=== PATIENT | female | born 1960 ===

== ENCOUNTER 2017-03-17 20:39 | Observation (INO) | payer MEDICAID, OTHER ==
--- NOTE | 2017-03-17 21:41 | ED PDOC ---
HPI: Trauma/Fall - HPI Time Seen by Provider: 03/17/17 21:23 Chief Complaint (Nursing): Trauma Chief Complaint (Provider): Trauma History Per: Patient History/Exam Limitations: no limitations Onset/Duration Of Symptoms: Days (x2) Additional Complaint(s): Nidhi Caldwell, 56 year old female presents to the ED on 03/17/17 after falling down the stairs on Wednesday morning at 4:27 AM. The patient states that she woke up as she was falling down the stairs and does not remember getting out of bed. She also reports that she does not sleep walk. The patient injured her neck and hit her head. She is also complaining of right sided chest pain, left sided hip pain, left sided knee pain, and left ankle pain. The patient did not lose consciousness after she fell down the stairs. Against Medical Advice - AMA Patient Left Against Medical Advice: The patient declines admission to the hospital and wishes to leave the Emergency Department. This action is against my medical advice. This decision was made with informed refusal. The patient was told that admission to the hospital is necessary. Explanation of the reasons why were discussed. The risks of leaving were explained to the patient and include, but are not limited to, worsening of known or currently unknown conditions, permanent disability and from undiagnosed or untreated conditions. The patient has the capacity to make this informed decision and understands my explanation of the current medical problem and risks of leaving. The patient voluntarily accepts these risks and signed an AMA form documenting our conversation. The patient was given the opportunity to ask questions and reconsider. The patient was encouraged to return to the Emergency Department at any time for further care. 03/17/17 23:56 Pt. states she has scheduled appointment with a new manager solar tomorrow and she does not want to miss it. Pt. encouraged to stay in hospital for further monitoring but states she does not want to stay and she will f/u with her PMD instead. Past Medical History Reviewed: Historical Data, Nursing Documentation, Vital Signs Vital Signs: Last Vital Signs Temp 98.6 F 03/17/17 21:01 Pulse 70 03/17/17 21:01 Resp 20 03/17/17 21:01 BP 140/53 L 03/17/17 21:01 Pulse Ox 100 03/17/17 21:01 - Medical History PMH: Arthritis (psoriatic), Hyperthyroidism Denies: Chronic Kidney Disease - Surgical History Surgical History: Cholecystectomy - Family History Family History: States: Unknown Family Hx - Home Medications Home Medications: Ambulatory Orders Medication Instructions Recorded Dicyclomine [Bentyl] 20 mg PO Q12 PRN #20 tab 01/31/16 Ondansetron ODT [Zofran ODT] 4 mg PO Q6H PRN #16 odt 01/31/16 Tramadol HCl [Ultram] 50 mg PO BID PRN #10 tablet 03/17/17 - Allergies Allergies/Adverse Reactions: Allergies Allergy/AdvReac Type Severity Reaction Status Date / Time No Known Allergies Allergy Verified 01/30/16 19:24 Review of Systems Cardiovascular: Positive for: Chest Pain (right sided chest pain) Musculoskeletal: Positive for: Neck Pain (injured neck), Leg Pain (left sided hip pain, knee pain, and ankle pain), Other (injured head) Neurological: Negative for: Other (no loss of consciousness ) Physical Exam - Reviewed Nursing Documentation Reviewed: Yes Vital Signs Reviewed: Yes - Physical Exam Appears: Positive for: Non-toxic, No Acute Distress Head Exam: Positive for: ATRAUMATIC, NORMOCEPHALIC Skin: Positive for: Normal Color, Warm, Dry Eye Exam: Positive for: Normal appearance ENT: Positive for: Normal ENT Inspection Neck: Positive for: Normal Cardiovascular/Chest: Positive for: Regular Rate, Rhythm. Negative for: Chest Non Tender (right sided axillary and chest wall tenderness and ecchymosis ) Respiratory: Positive for: Normal Breath Sounds. Negative for: Respiratory Distress Gastrointestinal/Abdominal: Positive for: Normal Exam, Soft. Negative for: Tenderness, Mass, Distended, Guarding, Rebound Back: Positive for: Normal Inspection, Other (minimal paracervical muscle tenderness) Extremity: Positive for: Tenderness (left lateral hip tenderness; left anterior knee tenderness; left lateral malleolus tenderness of ankle; tenderness to left thumb) Neurologic/Psych: Positive for: Alert, Oriented (x3) - Laboratory Results Result Diagrams: 03/17/17 22:05 03/17/17 22:05 - ECG O2 Sat by Pulse Oximetry: 100 (RA) Pulse Ox Interpretation: Normal Medical Decision Making Medical Decision Makin:23 Initial Impression: Trauma - Multisystem Initial Plan: * Type and Screen Stat * CT Cervical Spine W/O Contrast Stat * CT Chest W/O Contrast Stat * CT Head W/O Contrast Stat * ED EKG * COMP Metabolic Panel Stat * Troponin I Stat * CBC (with Differential) Stat * Partial Thromboplastin Time [COAG] Stat * PT/INR [Prothrombin Time] [COAG] Stat * Chest Portable [RAD] Stat * Knee 3 Views LT [RAD] Stat * IV Insertion (Saline Lock) Once * Ankle Left 3 Views Routine [RAD] Stat * Hip 1 View W/ Pelvis LT [RAD] Stat * Urinalysis Stat * Morphine 2 mg IVP STAT * Zofran Inj 4 mg IVP STAT * Admit to Hospital Routine Scribe Attestation: Documented by Lauryn Franklin, acting as a scribe for Dallin Su PA-C. Provider Scribe Attestation: All medical record entries made by the Scribe were at my direction and personally dictated by me. I have reviewed the chart and agree that the record accurately reflects my personal performance of the history, physical exam, medical decision making, and the department course for this patient. I have also personally directed, reviewed, and agree with the discharge instructions and disposition. Disposition - Clinical Impression Clinical Impression: Syncope, Head injury, Chest wall contusion - Patient ED Disposition Is Patient to be Admitted: Transfer of Care (Signed out to Leatha DEL ROSARIO pending CT abd/pelvis w/o contrast ordered.) - Disposition Disposition: Transfer of Care Disposition Time: 23:56 Condition: STABLE ED OBSERVATION Discharge: Yes Date of observation admission: 03/17/17 Time of observation admission: 21:38 - Observation admission statement Patient is being placed in observation because:: s/p fall - Progress Note Progress Note: 03/17/17 22:43 EKG SR at [address]-T wave changes. 03/17/17 23:54 CXR: NAD L ankle, L knee, L hip, L hand xrays: no fx CT head w/o contrast: negative CT cervical spine w/o contrast: no fx CT chest w/o contrast: no ptx or fx; Right renal peripelvic cyst versus minimal fullness to the collecting system 03/18/17 00:06 UA showed UTI and due to CT chest findings CT abd/pelvis w/o contrast ordered. Pt. offered admission again but refused and states she just wants to get CT abd/ pelvis done to check her kidneys.
[2017-03-17 22:15] LABS: BASO % 0.5 % (0.0-2.0); EOS # 0.2 K/uL (0.0-0.7); EOS % 2.9 % (0.0-4.0); HEMATOCRIT 44.4 % (34.0-47.0); LYMPH % 28.7 % (20.0-40.0); MEAN CELL VOLUME 87.3 fl (81.0-99.0); MEAN CORPUSCULAR HEMOGLOBIN 29.2 pg (27.0-31.0); MEAN CORPUSCULAR HGB CONC 33.5 g/dL (33.0-37.0); MEAN PLATELET VOLUME 7.7 fl (7.2-11.7); MONO # 0.4 K/uL (0.0-0.8); MONO % 5.9 % (0.0-10.0); NEUT # 4.3 K/uL (1.8-7.0); NRBC % 0.1 % (0.0-0.0); RED CELL DISTRIBUTION WIDTH 13.8 % (11.5-14.5)
[2017-03-17 22:39] LABS: ALB/GLOB RATIO 1.5 (1.0-2.1); ALCOHOL SERUM < 10 mg/dl (0-10); ALKALINE PHOSPHATASE 110 U/L (38-126); ALT/SGPT 49 U/L (9-52); AST/SGOT 27 U/L (14-36); BILIRUBIN,TOTAL 0.3 mg/dl (0.2-1.3); BLOOD UREA NITROGEN 19 mg/dl (7-17); CALCIUM 9.1 mg/dL (8.4-10.2); CARBON DIOXIDE 31 mmol/L (22-30); CHLORIDE 99 mmol/L (98-107); GFR AFRICAN-AMERICAN > 60; GLUCOSE,RANDOM 158 mg/dL (65-105); POTASSIUM 3.8 MMOL/L (3.6-5.0); SODIUM 140 mmol/l (132-148); TOTAL PROTEIN 7.2 G/DL (6.3-8.2)
[2017-03-17 23:11] LABS: PARTIAL THROMBOPLASTIN TIME 26.8 SECONDS (23.3-32.5)
[2017-03-17 23:55] LABS: RBC URINE 1 /hpf (0-3); URINE BACTERIA RARE (<OCC); URINE BILIRUBIN NEGATIVE (NEGATIVE); URINE BLOOD SMALL (NEGATIVE); URINE COLOR STRAW (YELLOW); URINE GLUCOSE (UA) 50 mg/dL (Normal); URINE KETONE NEGATIVE (NEGATIVE); URINE LEUKOCYTE ESTERASE LARGE Leu/uL (Negative); URINE PROTEIN NEGATIVE (NEGATIVE); URINE UROBILINOGEN 0.2-1.0 mg/dL (0.2-1.0); WBC URINE 14 /hpf (0-5)
--- NOTE | 2017-03-18 01:40 | ED PDOC ---
- Laboratory Results Result Diagrams: 03/17/17 22:05 03/17/17 22:05 - ECG O2 Sat by Pulse Oximetry: 100 (RA) - Progress ED Course And Treament: Case endorsed to literary writer from Georges DEL ROSARIO pending CT abd/pelvis EXAM: CT Abdomen and Pelvis Without Intravenous Contrast CLINICAL HISTORY: 56 years old, female; Pain; Abdominal pain; Flank; Right; Prior surgery; Surgery date: 6+ months; Surgery type: Gall bladder removed; Additional info: Uti, r sided perinephric swelling TECHNIQUE: Axial computed tomography images of the abdomen and pelvis without intravenous contrast. This CT exam was performed using one or more of the following dose reduction techniques: automated exposure control, adjustment of the mA and/or kV according to patient size, and/or use of iterative reconstruction technique. COMPARISON: No relevant prior studies available. FINDINGS: Lower thorax: No acute findings. ABDOMEN: Liver: Fatty infiltration of the liver. Gallbladder and bile ducts: Cholecystectomy. No ductal dilation. Pancreas: Unremarkable. No ductal dilation. Spleen: Unremarkable. No splenomegaly. Adrenals: Unremarkable. No mass. Kidneys and ureters: No stones within either kidney or ureter and no hydronephrosis. Stomach and bowel: Moderate fecal retention in the right and transverse colon. Diverticulosis in the colon without evidence of diverticulitis. Appendix: Normal appendix. PELVIS: Bladder: Unremarkable. No stones. Reproductive: Unremarkable as visualized. ABDOMEN and PELVIS: Intraperitoneal space: Unremarkable. No free air. No significant fluid collection. Bones/joints: No acute fracture. No dislocation. Soft tissues: Unremarkable. Vasculature: Unremarkable. No abdominal aortic aneurysm. Lymph nodes: Unremarkable. No enlarged lymph nodes. IMPRESSION: 1. No stones within either kidney or ureter and no hydronephrosis. 2. Moderate fecal retention in the right and transverse colon. Patient made aware of results; still has not changed her mind abotu signing against medical advice. Rx Cipro provided (dose given in ED) Follow up PMD 2-3 days. Return to ED for worsening/concerning symptoms. Disposition - Clinical Impression Clinical Impression: Syncope, Head injury, Chest wall contusion, UTI (urinary tract infection) - POA Present On Arrival: None - Disposition Disposition: Routine/Home Disposition Time: 01:42 Condition: STABLE
[2017-03-18 02:26] VITALS: BP 133/81; PULSE 81; RESP 17; TEMP 98.1
--- NOTE | 2017-03-18 07:51 | CT ---
PROCEDURE: CT HEAD WITHOUT CONTRAST. HISTORY: trauma COMPARISON: None available. TECHNIQUE: Axial computed tomography images were obtained through the head/brain without intravenous contrast. Radiation dose: Total exam DLP = 832.41 mGy-cm. This CT exam was performed using one or more of the following dose reduction techniques: Automated exposure control, adjustment of the mA and/or kV according to patient size, and/or use of iterative reconstruction technique. FINDINGS: HEMORRHAGE: No intracranial hemorrhage. BRAIN: No mass effect or edema. No atrophy or chronic microvascular ischemic changes. VENTRICLES: Unremarkable. No hydrocephalus. CALVARIUM: Unremarkable. PARANASAL SINUSES: Unremarkable as visualized. No significant inflammatory changes. MASTOID AIR CELLS: Unremarkable as visualized. No inflammatory changes. OTHER FINDINGS: None. IMPRESSION: No evidence of acute intracranial hemorrhage intracranial collection mass effect or midline shift. Preliminary report was submitted by [facility].
--- NOTE | 2017-03-18 07:55 | CT ---
PROCEDURE: CT Cervical Spine without contrast HISTORY: <trauma> COMPARISON: None available. TECHNIQUE: Axial computed tomography images were obtained of the cervical spine without the use of intravenous contrast. Coronal and sagittal reformatted images were created and reviewed. Radiation dose: Total exam DLP = 528.37 mGy-cm. This CT exam was performed using one or more of the following dose reduction techniques: Automated exposure control, adjustment of the mA and/or kV according to patient size, and/or use of iterative reconstruction technique. FINDINGS: VERTEBRAE: No fracture. Normal alignment. No destructive bony lesion. DISCS/SPINAL CANAL/NEURAL FORAMINA: Moderate degenerative disc changes associated with multilevel small osteophyte disc bulging complex more prominent at C4-C5. . Discs heights are grossly preserved. PARASPINAL SOFT TISSUES: Unremarkable. OTHER FINDINGS: None. IMPRESSION: No evidence of acute displaced fracture or subluxation at the cervical spine. Moderate degenerative changes and multilevel small osteophyte disc bulging complex. Preliminary report was submitted by [facility]
--- NOTE | 2017-03-18 08:01 | CT ---
PROCEDURE: CT Chest without contrast HISTORY: trauma COMPARISON: None. TECHNIQUE: Contiguous axial images were obtained through the chest without intravenous contrast enhancement. Sagittal and coronal reconstructions were performed. Radiation dose (DLP): 630.83 mGy-cm. This CT exam was performed using one or more of the following dose reduction techniques: Automated exposure control, adjustment of the mA and/or kV according to patient size, and/or use of iterative reconstruction technique. FINDINGS: LUNGS: Clear lungs. Visualized airway clear. MEDIASTINUM: Unremarkable thoracic aorta. No aneurysm. Normal sized heart. Main pulmonary artery unremarkable. No vascular congestion. No lymphadenopathy. PLEURA: No pleural fluid. No pneumothorax. BONES: No fracture. No destructive lesion. UPPER ABDOMEN: Small right renal parapelvic cyst versus fullness in the collecting system. OTHER FINDINGS: None. IMPRESSION: No evidence of acute pathology in the chest. Preliminary report was submitted by [facility].
--- NOTE | 2017-03-18 08:52 | CT ---
PROCEDURE: CT Abdomen and Pelvis without intravenous contrast HISTORY: UTI, R sided perinephric swelling COMPARISON: None. TECHNIQUE: Axial and reformatted coronal and sagittal CT images of the abdomen and pelvis were obtained without IV or oral contrast administration.. Contrast Dose: 0 Radiation dose: Total exam DLP = 825.18 mGy-cm. This CT exam was performed using one or more of the following dose reduction techniques: Automated exposure control, adjustment of the mA and/or kV according to patient size, and/or use of iterative reconstruction technique. FINDINGS: LOWER THORAX: Unremarkable. LIVER: No evidence of acute pathology. Mild cardiomegaly GALLBLADDER AND BILE DUCTS: It megaly is seen. At least post cholecystectomy. PANCREAS: Unremarkable. No gross lesion or ductal dilatation. SPLEEN: Unremarkable. ADRENALS: Unremarkable. No mass. KIDNEYS AND URETERS: Unremarkable. No hydronephrosis. No solid mass. VASCULATURE: Unremarkable. No aortic aneurysm. BOWEL: Unremarkable. No obstruction. No gross mural thickening. Mild constipation is noted. APPENDIX: Unremarkable. Normal appendix. PERITONEUM: Unremarkable. No free fluid. No free air. LYMPH NODES: Unremarkable. No enlarged lymph nodes. BLADDER: Unremarkable. REPRODUCTIVE: Unremarkable. BONES: No acute fracture. OTHER FINDINGS: None. IMPRESSION: No evidence of acute pathology in the abdomen and pelvis. Mild constipation. No evidence of nephrolithiasis or hydronephrosis. Colonic diverticulosis without evidence of diverticulitis. Preliminary report was submitted by [facility].
--- NOTE | 2017-03-18 10:07 | CARD ---
APPROVED REPORT EKG Measurement Heart [id number] <Conclusion> Normal sinus rhythm Minimal voltage criteria for LVH, may be normal variant Possible septal infarct, age undetermined Abnormal ECG
--- NOTE | 2017-03-18 12:37 | RAD ---
HISTORY: trauma COMPARISON: No prior. FINDINGS: LUNGS: No active pulmonary disease. PLEURA: No significant pleural effusion identified, no pneumothorax apparent. CARDIOVASCULAR: No radiographic findings to suggest acute or significant cardiovascular disease. OSSEOUS STRUCTURES: No significant abnormalities. VISUALIZED UPPER ABDOMEN: Normal. OTHER FINDINGS: None. IMPRESSION: No active disease.
--- NOTE | 2017-03-18 13:24 | RAD ---
PROCEDURE: Left Knee Radiographs. HISTORY: Pain. COMPARISON: None. FINDINGS: BONES: Normal. No fracture. JOINTS: Mild osteoarthritic changes JOINT EFFUSION: None. OTHER FINDINGS: None. IMPRESSION: No evidence of acute pathology. Mild osteoarthritic changes.
--- NOTE | 2017-03-18 13:25 | RAD ---
PROCEDURE: Left Ankle Radiographs. HISTORY: trauma COMPARISON: None FINDINGS: BONES: Normal. No fracture. JOINTS: Normal. No osteoarthritis. Ankle mortise maintained. Talar dome intact SOFT TISSUES: Normal. OTHER FINDINGS: None. IMPRESSION: No evidence of acute fracture or dislocation.
--- NOTE | 2017-03-18 13:35 | RAD ---
PROCEDURE: Left Hip X-ray Radiographs. HISTORY: trauma COMPARISON: None. FINDINGS: BONES: Normal. No fracture. JOINTS: Normal. SOFT TISSUES: Normal. OTHER FINDINGS: None. IMPRESSION: No evidence of acute fracture or dislocation.
--- NOTE | 2017-03-18 13:45 | RAD ---
PROCEDURE: Left Thumb radiographs. HISTORY: trauma COMPARISON: None. TECHNIQUE: AP radiograph of the left hand, as well as spot oblique and lateral images of thumb were obtained. FINDINGS: LEFT THUMB: Normal left thumb, without fracture or focal lesion. Remainder of the left hand (as seen on the AP view) grossly unremarkable. JOINTS: Arthritic changes. SOFT TISSUES: Normal. OTHER FINDINGS: None. IMPRESSION: No evidence of acute fracture or dislocation.
--- NOTE | 2017-03-19 11:47 | RAD ---
PROCEDURE: Left hip HISTORY: Posttraumatic pain COMPARISON: None TECHNIQUE: Standard protocol for this study/examination. FINDINGS: There are no osseous abnormalities to suggest fracture. The pelvic ring is intact. Preserved femoral-acetabular relationship. IMPRESSION: No acute findings related to/accounting for the clinical presentation.
[2017-03-23 03:01] VITALS: O2SAT 100
== END 2017-03-17 23:57 | disposition left against medical advice (07) ==
LOC: H.ER 20:39 → H.EROBSV 21:38
PROVIDERS: ADMIT Emergency Medicine; ATTEND Emergency Medicine
DX: R55 Syncope and collapse (principal); S20.211A Contusion of right front wall of thorax, initial encounter; S09.8XXA Other specified injuries of head, initial encounter; N39.0 Urinary tract infection, site not specified; E05.90 Thyrotoxicosis, unspecified without thyrotoxic crisis or storm; L40.50 Arthropathic psoriasis, unspecified; W10.8XXA Fall (on) (from) other stairs and steps, initial encounter; Y92.009 Unspecified place in unspecified non-institutional (private) residence as the place of occurrence of the external cause

== ENCOUNTER 2019-03-14 11:37 | Inpatient (IN) | payer MEDICAID, OTHER ==
[2019-03-14 12:09] VITALS: BMI 29.2
[2019-03-14] MEDS ORDERED: Sodium Chloride 0.9% 1,000 ML IV STA (13:12)
[2019-03-14 13:50] LABS: BASO % 0.4 % (0.0-2.0); EOS # 0.1 K/uL (0.0-0.7); EOS % 0.5 % (0.0-4.0); HEMOGLOBIN 15.3 g/dL (12.0-16.0); LYMPH # 1.2 K/uL (1.0-4.3); LYMPH % 11.1 % (20.0-40.0); MEAN CELL VOLUME 92.8 fl (81.0-99.0); MEAN CORPUSCULAR HEMOGLOBIN 32.2 pg (27.0-31.0); MEAN CORPUSCULAR HGB CONC 34.7 g/dL (33.0-37.0); MEAN PLATELET VOLUME 7.7 fl (7.2-11.7); MONO # 1.1 K/uL (0.0-0.8); NEUT # 8.8 K/uL (1.8-7.0); RBC 4.77 Mil/uL (3.80-5.20); RED CELL DISTRIBUTION WIDTH 13.6 % (11.5-14.5)
[2019-03-14 13:51] LABS: WHITE BLOOD COUNT 11.3 K/uL (4.8-10.8)
[2019-03-14 13:54] LABS: ALB/GLOB RATIO 1.3 (1.0-2.1); ALBUMIN 4.5 g/dL (3.5-5.0); BLOOD UREA NITROGEN 15 mg/dl (7-17); CALCIUM 9.8 mg/dL (8.4-10.2); GFR NON-AFRICAN AMERICAN > 60; LIPASE 106 U/L (23-300)
[2019-03-14 13:57] LABS: ALT/SGPT 44 U/L (9-52); AST/SGOT 27 U/L (14-36)
--- NOTE | 2019-03-14 14:39 | ED PDOC ---
HPI: Abdomen Time Seen by Provider: 03/14/19 12:47 Chief Complaint (Nursing): Abdominal Pain History Per: Patient Additional Complaint(s): Pt. states yesterday she developed LLQ sharp crampy lower abdominal pain which radiates into her pelvis. Further reports over the weekend she developed diarrhea which resolved yesterday and has been having normal BM's since. Denies fever, N/V, melena, hematochezia, BRBPR, dysuria, hematuria, back pain. Past Medical History Reviewed: Historical Data, Nursing Documentation, Vital Signs Vital Signs: Last Vital Signs Temp 98.6 F 03/14/19 12:09 Pulse 97 H 03/14/19 12:09 Resp 20 03/14/19 12:09 BP 148/78 03/14/19 12:09 Pulse Ox 98 03/14/19 12:09 Primary Care Provider: Non [facility] Provider, - Medical History PMH: Anxiety, Arthritis (psoriatic), Hyperthyroidism Denies: Chronic Kidney Disease - Surgical History Surgical History: Cholecystectomy - Family History Family History: States: No Known Family Hx - Home Medications Home Medications: Ambulatory Orders Medication Instructions Recorded Levothyroxine [Synthroid] 150 mcg PO DAILY 06/07/18 Home Med 1 unit PO PRN PRN 06/14/18 - Allergies Allergies/Adverse Reactions: Allergies Allergy/AdvReac Type Severity Reaction Status Date / Time latex AdvReac URTICARIA Verified 06/14/18 11:56 Review of Systems ROS Statement: Except As Marked, All Systems Reviewed And Found Negative Gastrointestinal: Positive for: Abdominal Pain Physical Exam - Physical Exam Appears: Positive for: Well, Non-toxic, No Acute Distress Skin: Positive for: Normal Color, Warm. Negative for: Rash Eye Exam: Positive for: Normal appearance Cardiovascular/Chest: Positive for: Regular Rate, Rhythm Respiratory: Positive for: Normal Breath Sounds. Negative for: Respiratory Distress Gastrointestinal/Abdominal: Positive for: Soft, Tenderness (mild LLQ tenderness). Negative for: Distended, Guarding, Rebound Back: Negative for: L CVA Tenderness, R CVA Tenderness Neurological/Psych: Positive for: Awake, Alert, Oriented (x3) - Laboratory Results Result Diagrams: 03/14/19 13:35 03/14/19 13:35 Lab Results: Total Bilirubin 0.8 mg/dl (0.2-1.3) 03/14/19 13:35 AST 27 U/L (14-36) 03/14/19 13:35 ALT 44 U/L (9-52) 03/14/19 13:35 Alkaline Phosphatase 80 U/L (38-126) 03/14/19 13:35 Total Protein 8.0 G/DL (6.3-8.2) 03/14/19 13:35 Albumin 4.5 g/dL (3.5-5.0) 03/14/19 13:35 Globulin 3.5 gm/dL (2.2-3.9) 03/14/19 13:35 Albumin/Globulin Ratio 1.3 (1.0-2.1) 03/14/19 13:35 Lipase 106 U/L (23-300) 03/14/19 13:35 - ECG O2 Sat by Pulse Oximetry: 98 - Progress ED Course And Treament: Labs, CT abd/pelvis w/ IV contrast, bentyl 20mg PO ordered. 1800 CT abd/pelvis w/ IV contrast: 1. Findings most compatible with mid sigmoid segmental diverticulitis. A large diverticula is identified at the superior portion of this mid sigmoid segment versus contained abscess. Follow-up CT advised. No free intrarenal gas collection or large abscess identified. Limited nonspecific fluid is seen inferior to the segment of sigmoid colon at the left lower quadrant. 2. Hepatic steatosis. 3. 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 [phone] Case d/w Dr. Biswas (surgical nurse) who requests Cipro/Flagyl IV and for pt. to be admitted. Case d/w Dr. García, medicine group segment consultant, and agrees with plan and care. Cipro/flagyl IV, VBG, blood culture x 2 ordered. Disposition - Clinical Impression Clinical Impression: Diverticulitis - Patient ED Disposition Is Patient to be Admitted: No - Disposition Disposition Time: 18:20 Condition: FAIR
[2019-03-14 14:45] LABS: SQUAMOUS EPITHIAL < 1 /hpf (0-5); URINE BILIRUBIN NEGATIVE (NEGATIVE); URINE BLOOD NEGATIVE (NEGATIVE); URINE CLARITY CLEAR (Clear); URINE COLOR YELLOW (YELLOW); URINE GLUCOSE (UA) 150 mg/dL (NEGATIVE); URINE LEUKOCYTE ESTERASE NEG Leu/uL (Negative); URINE PROTEIN NEGATIVE (NEGATIVE); URINE UROBILINOGEN 0.2-1.0 mg/dL (0.2-1.0)
[2019-03-14] MEDS ORDERED: Sodium Chloride 0.9% 50 ML IV ONE (16:16)
[2019-03-14] MEDS ORDERED: Iohexol 300 100 ML IJ ONE (16:16)
--- NOTE | 2019-03-14 18:09 | CT ---
Date of service: 03/14/2019 PROCEDURE: CT Abdomen and Pelvis with contrast HISTORY: LLQ abdominal pain COMPARISON: Unenhanced abdomen pelvis CT 03/18/2017. TECHNIQUE: Following the intravenous administration of iodinated contrast material, a CT examination of the abdomen and pelvis was performed from the domes of the diaphragms to the symphysis pubis with reformatted datasets provided in axial, sagittal and coronal planes. Oral contrast was not administered as per referring physician request. Contrast dose: Omnipaque 300, 95 cc Radiation dose: Total exam DLP = 740.06 mGy-cm. This CT exam was performed using one or more of the following dose reduction techniques: Automated exposure control, adjustment of the mA and/or kV according to patient size, and/or use of iterative reconstruction technique. FINDINGS: LOWER THORAX: Unremarkable. LIVER: Diminished attenuation throughout the liver is appreciate compatible with hepatic steatosis. No mass or intrahepatic biliary dilatation identified. GALLBLADDER AND BILE DUCTS: Prior cholecystectomy reiterated. PANCREAS: Unremarkable. No gross lesion or ductal dilatation. SPLEEN: Unremarkable. ADRENALS: Unremarkable. No mass. KIDNEYS AND URETERS: Unremarkable. No hydronephrosis. No solid mass. VASCULATURE: Nonaneurysmal abdominal aortic calcific atherosclerotic changes are identified. BOWEL: There is a thickened segment of mid sigmoid colon with diffuse sigmoid diverticular changes present. Local pericolic changes affect this mid sigmoid segment with local fluid posteriorly in a pattern most compatible with sigmoid diverticulitis. There is a 2 cm diverticulum or abscess seen the superior margins of this segment of sigmoid colon. No free intra peritoneal gas is identified. A similar smaller diverticulum is seen at the proximal sigmoid colon posteromedially. Remaining large and small bowel appear unremarkable. APPENDIX: Normal appendix. PERITONEUM: Unremarkable. No free fluid. No free air. LYMPH NODES: Unremarkable. No enlarged lymph nodes. BLADDER: Urinary bladder is decompressed. REPRODUCTIVE: Unremarkable. BONES: No acute fracture. OTHER FINDINGS: None. IMPRESSION: 1. Findings most compatible with mid sigmoid segmental diverticulitis. A large diverticula is identified at the superior portion of this mid sigmoid segment versus contained abscess. Follow-up CT advised. No free intrarenal gas collection or large abscess identified. Limited nonspecific fluid is seen inferior to the segment of sigmoid colon at the left lower quadrant. 2. Hepatic steatosis. 3. 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 Findings discussed with MARIELY Su with written down read back verification 03/14/2019, 5:50 p.m..
[2019-03-14] MEDS ORDERED: metroNIDAZOLE 500mg/100ml NS 100 ML IVPB STA (18:25)
[2019-03-14] MEDS ORDERED: Ciprofloxacin 400mg/200ml D5W 400 MG/200 ML BAG IVPB STA (18:25)
[2019-03-14] MEDS ORDERED: Ciprofloxacin 400mg/200ml D5W 400 MG/200 ML BAG IVPB ONE (19:01)
[2019-03-14 19:35] LABS: VENOUS BLOOD GAS BASE EXCESS 0.8 mmol/L (0.0-2.0); VENOUS BLOOD GAS PCO2 46 mmHg (40-60); VENOUS BLOOD GAS PO2 34 mm/Hg (30-55); VENOUS BLOOD PH 7.37 (7.32-7.43)
[2019-03-14] MEDS ORDERED: metroNIDAZOLE 500mg/100ml NS 100 ML IVPB ONE (20:49)
--- NOTE | 2019-03-14 22:34 | CP.PCM.CON ---
History of Present Illness - History of Present Illness History of Present Illness: Surgery Consult note. Dr. Hurley 58yo F with PMHx of Hyperthyroidism, Psoriatic Arthritis, Anxiety, PCOS who presented to [facility] ED with LLQ abdominal pain. Patient reports LLQ abdominal pain for 3 days associated with diarrhea. Pain described as sharp, non- radiating, and severe. No alleviating factors reported. Last PO intake was earlier this afternoon. No N/V. Denies melena or bloody stools. Denies fevers or chills. Last colonoscopy performed last year with evidence of sigmoid diverticulosis and polypectomy (benign bx). Denies any CP/SOB. No urinary complaints. CT A/P - with evidence of sigmoid diverticulitis with phlegmonous changes. PMHx: Hyperthyroid, Psoriatic Arthritis, Anxiety, PCOS PSHx: Cholecystectomy; Multiple laparoscopic ovarian cyst removals Family Hx: non-contributory Social Hx: Denies Tobacco use, denies ETOH use, denies illicit drugs Allergy: Latex Review of Systems - Review of Systems All systems: reviewed and no additional remarkable complaints except - Constitutional Constitutional: absent: Chills, Fever Past Patient History - Past Medical History & Family History Past Medical History?: Yes Past Family History: Reviewed and not pertinent - Past Social History Smoking Status: Former Smoker Alcohol: None Drugs: Denies - CARDIAC Hx Cardiac Disorders: No - PULMONARY Hx Respiratory Disorders: No - NEUROLOGICAL Hx Neurological Disorder: Yes Hx Vertigo: Yes - HEENT Hx HEENT Problems: Yes Hx Cataracts: Yes (Left eye) - RENAL Hx Chronic Kidney Disease: No - ENDOCRINE/METABOLIC Hx Hyperthyroidism: Yes - HEMATOLOGICAL/ONCOLOGICAL Hx Blood Disorders: No - INTEGUMENTARY Hx Dermatological Problems: No - MUSCULOSKELETAL/RHEUMATOLOGICAL Hx Arthritis: Yes (psoriatic) - GASTROINTESTINAL Hx Gastrointestinal Disorders: No - GENITOURINARY/GYNECOLOGICAL Hx Genitourinary Disorders: Yes Other/Comment: Polycystic ovarian disease. Fibroid on ovary - PSYCHIATRIC Hx Anxiety: Yes - SURGICAL HISTORY Hx Cholecystectomy: Yes - ANESTHESIA Hx Anesthesia: Yes Hx Anesthesia Reactions: Yes Hx Malignant Hyperthermia: No Meds Allergies/Adverse Reactions: Allergies Allergy/AdvReac Type Severity Reaction Status Date / Time latex AdvReac URTICARIA Verified 06/14/18 11:56 - Medications Medications: Current Medications Alprazolam (Xanax) 2 mg PO HS [facility] Enoxaparin Sodium (Lovenox) 40 mg SC DAILY [facility]; Protocol Hydrochlorothiazide (Microzide) 12.5 mg PO DAILY [facility] Ibuprofen (Motrin Tab) 600 mg PO Q6 PRN PRN Reason: Pain, moderate (4-7) Levothyroxine Sodium (Levothroid) 137 mcg PO DAILY@0630 [facility] Physical Exam - Constitutional Appears: Well, Non-toxic - Head Exam Head Exam: ATRAUMATIC, NORMAL INSPECTION, NORMOCEPHALIC - Eye Exam Eye Exam: EOMI. absent: Scleral icterus - ENT Exam ENT Exam: Mucous Membranes Moist - Respiratory Exam Respiratory Exam: NORMAL BREATHING PATTERN. absent: Accessory Muscle Use, Respiratory Distress - Cardiovascular Exam Cardiovascular Exam: RRR. absent: JVD - GI/Abdominal Exam GI & Abdominal Exam: Soft. absent: Distended, Firm, Guarding, Rebound Additional comments: LLQ tenderness to palpation. No rebound. No guarding. No peritoneal signs - Extremities Exam Extremities exam: Positive for: normal inspection. Negative for: calf tenderness - Neurological Exam Neurological exam: Alert, Oriented x3 - Skin Skin Exam: Dry, Intact, Normal Color, Warm Results - Vital Signs Recent Vital Signs: Last Vital Signs Temp 98.6 F 03/14/19 22:02 Pulse 97 H 03/14/19 22:02 Resp 20 03/14/19 22:02 BP 148/78 03/14/19 22:02 Pulse Ox 98 03/14/19 19:11 - Labs Result Diagrams: 03/15/19 06:35 03/15/19 06:35 Labs: Laboratory Results - last 24 hr 03/14/19 03/14/19 03/14/19 13:35 13:35 14:10 WBC 11.3 H D RBC 4.77 Hgb 15.3 Hct 44.2 MCV 92.8 D MCH 32.2 H MCHC 34.7 RDW 13.6 Plt Count 209 MPV 7.7 Neut % (Auto) 78.0 H Lymph % (Auto) 11.1 L [place] % (Auto) 10.0 Eos % (Auto) 0.5 Baso % (Auto) 0.4 Neut # (Auto) 8.8 H Lymph # (Auto) 1.2 [place] # (Auto) 1.1 H Eos # (Auto) 0.1 Baso # (Auto) 0.0 pO2 VBG pH VBG pCO2 VBG HCO3 VBG Total CO2 VBG O2 Sat (Calc) VBG Base Excess VBG Potassium Glucose Lactate FiO2 Sodium 137 Potassium 4.3 Chloride 99 Carbon Dioxide 28 Anion Gap 14 BUN 15 Creatinine 0.7 Est GFR ( Amer) > 60 Est GFR (Non-Af Amer) > 60 Random Glucose 161 H Calcium 9.8 Total Bilirubin 0.8 AST 27 ALT 44 Alkaline Phosphatase 80 Total Protein 8.0 Albumin 4.5 Globulin 3.5 Albumin/Globulin Ratio 1.3 Lipase 106 Venous Blood Potassium Urine Color Yellow Urine Clarity Clear Urine pH 6.0 Ur Specific [place] 1.011 Urine Protein Negative Urine Glucose (UA) 150 Urine Ketones Negative Urine Blood Negative Urine Nitrate Negative Urine Bilirubin Negative Urine Urobilinogen 0.2-1.0 Ur Leukocyte Esterase Neg Urine RBC (Auto) 1 Urine Microscopic WBC 2 Ur Squamous Epith Cells < 1 03/14/19 19:27 WBC RBC Hgb Hct MCV MCH MCHC RDW Plt Count MPV Neut % (Auto) Lymph % (Auto) [place] % (Auto) Eos % (Auto) Baso % (Auto) Neut # (Auto) Lymph # (Auto) [place] # (Auto) Eos # (Auto) Baso # (Auto) pO2 34 VBG pH 7.37 VBG pCO2 46 VBG HCO3 24.6 VBG Total CO2 28.0 VBG O2 Sat (Calc) 74.4 H VBG Base Excess 0.8 VBG Potassium 3.7 Glucose 104 Lactate 1.0 FiO2 21.0 Sodium 137.0 Potassium Chloride 103.0 Carbon Dioxide Anion Gap BUN Creatinine Est GFR ( Amer) Est GFR (Non-Af Amer) Random Glucose Calcium Total Bilirubin AST ALT Alkaline Phosphatase Total Protein Albumin Globulin Albumin/Globulin Ratio Lipase Venous Blood Potassium 3.7 Urine Color Urine Clarity Urine pH Ur Specific [place] Urine Protein Urine Glucose (UA) Urine Ketones Urine Blood Urine Nitrate Urine Bilirubin Urine Urobilinogen Ur Leukocyte Esterase Urine RBC (Auto) Urine Microscopic WBC Ur Squamous Epith Cells Assessment & Plan - Assessment and Plan (Free Text) Assessment: 58yo F with PMHx of hyperthyroidism, anxiety, psoriatic arthritis and PCOS here with sigmoid diverticulitis - CT A/P noted with sigmoid diverticulitis and phlegmonous changes Plan: - NPO for bowel rest - IVF - IV abx - pain management - f/u GI recommendations - we will monitor patient's clinical status and make further recommendations as warranted Further recs as per Dr. Xavi Schneider PGY2 surgery
[2019-03-14] MEDS: Sodium Chloride 0.9% 1,000 ML IV SCH (22:59)
[2019-03-15 06:46] LABS: MEAN CELL VOLUME 93.9 fl (81.0-99.0); MEAN CORPUSCULAR HEMOGLOBIN 31.8 pg (27.0-31.0); MEAN CORPUSCULAR HGB CONC 33.9 g/dL (33.0-37.0); RBC 4.39 Mil/uL (3.80-5.20); RED CELL DISTRIBUTION WIDTH 13.6 % (11.5-14.5)
[2019-03-15 07:34] LABS: ALB/GLOB RATIO 1.3 (1.0-2.1); ALBUMIN 3.7 g/dL (3.5-5.0); ALT/SGPT 43 U/L (9-52); AST/SGOT 20 U/L (14-36); BLOOD UREA NITROGEN 11 mg/dl (7-17); CALCIUM 8.7 mg/dL (8.4-10.2); GFR NON-AFRICAN AMERICAN > 60; HDL CHOLESTEROL 30 MG/DL (30-70)
[2019-03-15 07:36] LABS: LDL CHOLESTEROL 94 mg/dL (0-129)
[2019-03-15] MEDS: Ciprofloxacin 400mg/200ml D5W 400 MG/200 ML BAG IVPB SCH ×2 (08:56→22:00)
[2019-03-15] MEDS: Enoxaparin 40 mg Syringe SC SCH (08:58)
[2019-03-15] MEDS: metroNIDAZOLE 500mg/100ml NS 100 ML IVPB SCH ×3 (08:59→17:21)
--- NOTE | 2019-03-15 09:01 | CP.PCM.HP ---
History of Present Illness - History of Present Illness History of Present Illness: This is 58 y/o F with PMH of HTN, arthritis and Hypothyroid admitted to [facility] for evaluation and treatment of sigmoid diverticulitis with possible abscess. Patient presented to ER for 1 day hx of LLQ abdominal pain. Abdominal pain 8/10, radiating to pelvis and back, crampy sharp in nature, gets worse with movement and food. Reports subjective fever and diarrhea at home. Denies fever, N/V, melena, hematochezia, BRBPR, dysuria, hematuria, back pain. PMH: HTN, arthritis and Hypothyroid PSH: Cholecystectomy Allg: NKDA SH: Denies alcohol/Smoking or drug use FH: Denies Present on Admission - Present on Admission Any Indicators Present on Admission: No Review of Systems - Constitutional Constitutional: absent: Excessive Sweating - EENT Eyes: absent: Blurred Vision Ears: absent: Disequilibrium, Dizziness Nose/Mouth/Throat: absent: Nasal Congestion - Breasts Breasts: absent: Skin Changes - Cardiovascular Cardiovascular: absent: Chest Pain - Respiratory Respiratory: absent: Cough, Dyspnea, Hemoptysis - Gastrointestinal Gastrointestinal: Abdominal Pain (LLQ), Diarrhea. absent: Constipation, Heartburn, Vomiting - Genitourinary Genitourinary: absent: Change in Urinary Stream, Dysuria - Menstruation Menstruation: absent: Currently Menstual - Musculoskeletal Musculoskeletal: absent: Back Pain, Muscle Weakness, Neck Pain, Numbness, Stiffness, Tingling - Integumentary Integumentary: absent: Bleeding Lesions - Neurological Neurological: absent: Dizziness, Syncope, Tingling, Tremor, Vertigo, Weakness - Psychiatric Psychiatric: absent: Anxiety - Endocrine Endocrine: absent: Change in Body Appearance - Hematologic/Lymphatic Hematologic: absent: Easy Bleeding Past Patient History - Past Medical History & Family History Past Medical History?: Yes - Past Social History Smoking Status: Former Smoker - CARDIAC Hx Cardiac Disorders: No - PULMONARY Hx Respiratory Disorders: No - NEUROLOGICAL Hx Neurological Disorder: Yes Hx Vertigo: Yes - HEENT Hx HEENT Problems: Yes Hx Cataracts: Yes (Left eye) - RENAL Hx Chronic Kidney Disease: No - ENDOCRINE/METABOLIC Hx Hyperthyroidism: Yes - HEMATOLOGICAL/ONCOLOGICAL Hx Blood Disorders: No - INTEGUMENTARY Hx Dermatological Problems: No - MUSCULOSKELETAL/RHEUMATOLOGICAL Hx Arthritis: Yes (psoriatic) - GASTROINTESTINAL Hx Gastrointestinal Disorders: No - GENITOURINARY/GYNECOLOGICAL Hx Genitourinary Disorders: Yes Other/Comment: Polycystic ovarian disease. Fibroid on ovary - PSYCHIATRIC Hx Anxiety: Yes - SURGICAL HISTORY Hx Cholecystectomy: Yes - ANESTHESIA Hx Anesthesia: Yes Hx Anesthesia Reactions: Yes Hx Malignant Hyperthermia: No Meds Allergies/Adverse Reactions: Allergies Allergy/AdvReac Type Severity Reaction Status Date / Time latex AdvReac URTICARIA Verified 06/14/18 11:56 Physical Exam - Constitutional Appears: No Acute Distress - Head Exam Head Exam: ATRAUMATIC, NORMAL INSPECTION, NORMOCEPHALIC - Eye Exam Eye Exam: EOMI, Normal appearance, PERRL Pupil Exam: NORMAL ACCOMODATION - ENT Exam ENT Exam: Mucous Membranes Moist - Neck Exam Neck exam: Positive for: Normal Inspection - Respiratory Exam Respiratory Exam: Clear to Auscultation Bilateral, NORMAL BREATHING PATTERN - Cardiovascular Exam Cardiovascular Exam: REGULAR RHYTHM, +S1, +S2 - GI/Abdominal Exam GI & Abdominal Exam: Guarding, Normal Bowel Sounds, Rebound, Soft, Tenderness (LLQ) - Rectal Exam Rectal Exam: Deferred - Extremities Exam Extremities exam: Positive for: normal inspection - Back Exam Back exam: NORMAL INSPECTION. absent: CVA tenderness (L), CVA tenderness (R) - Neurological Exam Neurological exam: Alert, CN II-XII Intact, Oriented x3 - Psychiatric Exam Psychiatric exam: Normal Affect - Skin Skin Exam: Normal Color Results - Vital Signs Recent Vital Signs: Last Vital Signs Temp 97.4 F L 03/15/19 08:02 Pulse 62 03/15/19 08:02 Resp 18 03/15/19 08:02 BP 105/57 L 03/15/19 08:02 Pulse Ox 99 03/15/19 08:02 - Labs Result Diagrams: 03/15/19 06:35 03/15/19 06:35 Labs: Laboratory Results - last 24 hr 03/14/19 03/14/19 03/14/19 13:35 13:35 14:10 WBC 11.3 H D RBC 4.77 Hgb 15.3 Hct 44.2 MCV 92.8 D MCH 32.2 H MCHC 34.7 RDW 13.6 Plt Count 209 MPV 7.7 Neut % (Auto) 78.0 H Lymph % (Auto) 11.1 L [place] % (Auto) 10.0 Eos % (Auto) 0.5 Baso % (Auto) 0.4 Neut # (Auto) 8.8 H Lymph # (Auto) 1.2 [place] # (Auto) 1.1 H Eos # (Auto) 0.1 Baso # (Auto) 0.0 pO2 VBG pH VBG pCO2 VBG HCO3 VBG Total CO2 VBG O2 Sat (Calc) VBG Base Excess VBG Potassium Glucose Lactate FiO2 Sodium 137 Potassium 4.3 Chloride 99 Carbon Dioxide 28 Anion Gap 14 BUN 15 Creatinine 0.7 Est GFR ( Amer) > 60 Est GFR (Non-Af Amer) > 60 Random Glucose 161 H Calcium 9.8 Total Bilirubin 0.8 AST 27 ALT 44 Alkaline Phosphatase 80 Total Protein 8.0 Albumin 4.5 Globulin 3.5 Albumin/Globulin Ratio 1.3 Triglycerides Cholesterol LDL Cholesterol Direct HDL Cholesterol Lipase 106 Vitamin B12 TSH 3rd Generation Venous Blood Potassium Urine Color Yellow Urine Clarity Clear Urine pH 6.0 Ur Specific [place] 1.011 Urine Protein Negative Urine Glucose (UA) 150 Urine Ketones Negative Urine Blood Negative Urine Nitrate Negative Urine Bilirubin Negative Urine Urobilinogen 0.2-1.0 Ur Leukocyte Esterase Neg Urine RBC (Auto) 1 Urine Microscopic WBC 2 Ur Squamous Epith Cells < 1 03/14/19 03/15/19 03/15/19 19:27 06:35 06:35 WBC 9.0 RBC 4.39 Hgb 14.0 Hct 41.2 MCV 93.9 MCH 31.8 H MCHC 33.9 RDW 13.6 Plt Count 183 MPV Neut % (Auto) Lymph % (Auto) [place] % (Auto) Eos % (Auto) Baso % (Auto) Neut # (Auto) Lymph # (Auto) [place] # (Auto) Eos # (Auto) Baso # (Auto) pO2 34 VBG pH 7.37 VBG pCO2 46 VBG HCO3 24.6 VBG Total CO2 28.0 VBG O2 Sat (Calc) 74.4 H VBG Base Excess 0.8 VBG Potassium 3.7 Glucose 104 Lactate 1.0 FiO2 21.0 Sodium 137.0 138 Potassium 3.4 L Chloride 103.0 105 Carbon Dioxide 25 Anion Gap 11 BUN 11 Creatinine 0.6 L Est GFR ( Amer) > 60 Est GFR (Non-Af Amer) > 60 Random Glucose 104 Calcium 8.7 Total Bilirubin 0.9 AST 20 ALT 43 Alkaline Phosphatase 60 Total Protein 6.6 Albumin 3.7 Globulin 2.9 Albumin/Globulin Ratio 1.3 Triglycerides 69 Cholesterol 145 LDL Cholesterol Direct 94 HDL Cholesterol 30 Lipase Vitamin B12 729 TSH 3rd Generation 7.45 H Venous Blood Potassium 3.7 Urine Color Urine Clarity Urine pH Ur Specific [place] Urine Protein Urine Glucose (UA) Urine Ketones Urine Blood Urine Nitrate Urine Bilirubin Urine Urobilinogen Ur Leukocyte Esterase Urine RBC (Auto) Urine Microscopic WBC Ur Squamous Epith Cells Assessment & Plan - Assessment and Plan (Free Text) Assessment: A/P: 58 y/o F with PMH of HTN, arthritis and Hypothyroid admitted to [facility] for evaluation and treatment of sigmoid diverticulitis with possible abscess. LLQ Abdominal pain, due to Sigmoid Diverticulitis with possible abscess - CT Abdo/Pelvis: Sigmoid Diverticulitis with possible abscess - Afebrile, No leukocytosis - Consult Surgery, F/u recs - Consult GI, F/u recs - START Cipro and Flagyl Day 1 - C/w pain management, IVF and Zofran PRN - F/u Bcx - Monitor labs and VS HTN, Chronic, Controlled - C/w home meds as ordered Hypothyroid, Chronic - C/w Home meds as ordered DVT PPX - SCD and Lovenox Case discussed with Dr. García
--- NOTE | 2019-03-15 11:19 | CP.PCM.CON ---
History of Present Illness - History of Present Illness History of Present Illness: Surgery consult note for Dr. Hurley 58 yo female with pmhx of hyperthyroidism seen and evaluated at bedside for sharp LLQ abdominal pain. Patient states the pain had initially started this past weekend and she had developed diarrhea after. Patient admits to normal bowel movement at this time. States she had a colonoscopy done in the past and she was diagnosed with diverticulitis. States she is very thirsty. Denies fever, N/V, melena, hematochezia, dysuria, hematuria, back pain. pmhx: Anxiety, Arthritis (psoriatic), Hyperthyroidism Pshx: cholecystectomy Allergies: latex patient underwent CT scan of the abdomen which showed hepatic steatosis, and sigmoid diverticulitis Past Patient History - Past Medical History & Family History Past Medical History?: Yes - Past Social History Smoking Status: Former Smoker - CARDIAC Hx Cardiac Disorders: No - PULMONARY Hx Respiratory Disorders: No - NEUROLOGICAL Hx Neurological Disorder: Yes Hx Vertigo: Yes - HEENT Hx HEENT Problems: Yes Hx Cataracts: Yes (Left eye) - RENAL Hx Chronic Kidney Disease: No - ENDOCRINE/METABOLIC Hx Hyperthyroidism: Yes - HEMATOLOGICAL/ONCOLOGICAL Hx Blood Disorders: No - INTEGUMENTARY Hx Dermatological Problems: No - MUSCULOSKELETAL/RHEUMATOLOGICAL Hx Arthritis: Yes (psoriatic) - GASTROINTESTINAL Hx Gastrointestinal Disorders: No - GENITOURINARY/GYNECOLOGICAL Hx Genitourinary Disorders: Yes Other/Comment: Polycystic ovarian disease. Fibroid on ovary - PSYCHIATRIC Hx Anxiety: Yes - SURGICAL HISTORY Hx Cholecystectomy: Yes - ANESTHESIA Hx Anesthesia: Yes Hx Anesthesia Reactions: Yes Hx Malignant Hyperthermia: No Meds Allergies/Adverse Reactions: Allergies Allergy/AdvReac Type Severity Reaction Status Date / Time latex AdvReac URTICARIA Verified 06/14/18 11:56 - Medications Medications: Current Medications Alprazolam (Xanax) 2 mg PO HS [facility] Last Admin: 03/14/19 22:59 Dose: 2 mg Dicyclomine HCl (Bentyl) 20 mg PO Q6 PRN PRN Reason: Irritable bowel symptoms Enoxaparin Sodium (Lovenox) 40 mg SC DAILY [facility]; Protocol Last Admin: 03/15/19 08:58 Dose: Not Given Hydrochlorothiazide (Microzide) 12.5 mg PO DAILY [facility] Last Admin: 03/15/19 09:08 Dose: Not Given Ciprofloxacin (Cipro 400mg/200ml Dsw) 400 mg in 200 mls @ 200 mls/hr IVPB Q12 [facility]; Protocol Last Admin: 03/15/19 08:56 Dose: 200 mls/hr Metronidazole (Flagyl 500mg/100ml Ns) 100 mls @ 100 mls/hr IVPB Q8 [facility]; Protocol Last Admin: 03/15/19 08:59 Dose: 100 mls/hr Sodium Chloride (Sodium Chloride 0.9%) 1,000 mls @ 80 mls/hr IV .[id number] [facility] Stop: 03/15/19 22:42 Last Admin: 03/14/19 22:59 Dose: 80 mls/hr Ibuprofen (Motrin Tab) 600 mg PO Q6 PRN PRN Reason: Pain, Mild (1-3) Levothyroxine Sodium (Levothroid) 137 mcg PO DAILY@0630 [facility] Last Admin: 03/15/19 05:42 Dose: 137 mcg Morphine Sulfate (Morphine) 1 mg IVP Q6 PRN PRN Reason: Pain, moderate (4-7) Morphine Sulfate (Morphine) 2 mg IVP Q6 PRN PRN Reason: Pain, severe (8-10) Physical Exam - Constitutional Appears: Well, Non-toxic - Head Exam Head Exam: ATRAUMATIC, NORMOCEPHALIC - Eye Exam Eye Exam: Normal appearance Pupil Exam: NORMAL ACCOMODATION - ENT Exam ENT Exam: Mucous Membranes Moist - Respiratory Exam Respiratory Exam: NORMAL BREATHING PATTERN - GI/Abdominal Exam GI & Abdominal Exam: Soft, Tenderness. absent: Distended, Guarding Additional comments: LLQ tenderness - Neurological Exam Neurological exam: Alert, Oriented x3 Results - Vital Signs Recent Vital Signs: Last Vital Signs Temp 97.4 F L 03/15/19 08:02 Pulse 62 03/15/19 08:02 Resp 18 03/15/19 08:02 BP 105/57 L 03/15/19 08:02 Pulse Ox 99 03/15/19 08:02 - Labs Result Diagrams: 03/15/19 06:35 03/15/19 06:35 Labs: Laboratory Results - last 24 hr 03/14/19 03/14/19 03/14/19 13:35 13:35 14:10 WBC 11.3 H D RBC 4.77 Hgb 15.3 Hct 44.2 MCV 92.8 D MCH 32.2 H MCHC 34.7 RDW 13.6 Plt Count 209 MPV 7.7 Neut % (Auto) 78.0 H Lymph % (Auto) 11.1 L [place] % (Auto) 10.0 Eos % (Auto) 0.5 Baso % (Auto) 0.4 Neut # (Auto) 8.8 H Lymph # (Auto) 1.2 [place] # (Auto) 1.1 H Eos # (Auto) 0.1 Baso # (Auto) 0.0 pO2 VBG pH VBG pCO2 VBG HCO3 VBG Total CO2 VBG O2 Sat (Calc) VBG Base Excess VBG Potassium Glucose Lactate FiO2 Sodium 137 Potassium 4.3 Chloride 99 Carbon Dioxide 28 Anion Gap 14 BUN 15 Creatinine 0.7 Est GFR ( Amer) > 60 Est GFR (Non-Af Amer) > 60 Random Glucose 161 H Calcium 9.8 Total Bilirubin 0.8 AST 27 ALT 44 Alkaline Phosphatase 80 Total Protein 8.0 Albumin 4.5 Globulin 3.5 Albumin/Globulin Ratio 1.3 Triglycerides Cholesterol LDL Cholesterol Direct HDL Cholesterol Lipase 106 Vitamin B12 TSH 3rd Generation Venous Blood Potassium Urine Color Yellow Urine Clarity Clear Urine pH 6.0 Ur Specific [place] 1.011 Urine Protein Negative Urine Glucose (UA) 150 Urine Ketones Negative Urine Blood Negative Urine Nitrate Negative Urine Bilirubin Negative Urine Urobilinogen 0.2-1.0 Ur Leukocyte Esterase Neg Urine RBC (Auto) 1 Urine Microscopic WBC 2 Ur Squamous Epith Cells < 1 03/14/19 03/15/19 03/15/19 19:27 06:35 06:35 WBC 9.0 RBC 4.39 Hgb 14.0 Hct 41.2 MCV 93.9 MCH 31.8 H MCHC 33.9 RDW 13.6 Plt Count 183 MPV Neut % (Auto) Lymph % (Auto) [place] % (Auto) Eos % (Auto) Baso % (Auto) Neut # (Auto) Lymph # (Auto) [place] # (Auto) Eos # (Auto) Baso # (Auto) pO2 34 VBG pH 7.37 VBG pCO2 46 VBG HCO3 24.6 VBG Total CO2 28.0 VBG O2 Sat (Calc) 74.4 H VBG Base Excess 0.8 VBG Potassium 3.7 Glucose 104 Lactate 1.0 FiO2 21.0 Sodium 137.0 138 Potassium 3.4 L Chloride 103.0 105 Carbon Dioxide 25 Anion Gap 11 BUN 11 Creatinine 0.6 L Est GFR ( Amer) > 60 Est GFR (Non-Af Amer) > 60 Random Glucose 104 Calcium 8.7 Total Bilirubin 0.9 AST 20 ALT 43 Alkaline Phosphatase 60 Total Protein 6.6 Albumin 3.7 Globulin 2.9 Albumin/Globulin Ratio 1.3 Triglycerides 69 Cholesterol 145 LDL Cholesterol Direct 94 HDL Cholesterol 30 Lipase Vitamin B12 729 TSH 3rd Generation 7.45 H Venous Blood Potassium 3.7 Urine Color Urine Clarity Urine pH Ur Specific [place] Urine Protein Urine Glucose (UA) Urine Ketones Urine Blood Urine Nitrate Urine Bilirubin Urine Urobilinogen Ur Leukocyte Esterase Urine RBC (Auto) Urine Microscopic WBC Ur Squamous Epith Cells Assessment & Plan - Assessment and Plan (Free Text) Assessment: 58 yo female with pmhx of hyperthyroidism seen and evaluated for left lower quadrant pain, sigmoid diverticulitis with phlegmon Plan: NPO at this time. Continue IV fluids Continue IV abx Monitor for pain resolution CT abdomen reviewed. D/w Dr. Hurley
[2019-03-15] MEDS: Sodium Chloride 0.9% 1,000 ML IV SCH (11:22)
[2019-03-15] MEDS ORDERED: Potassium Chloride 20 mEq ER Tab PO ONE (13:45)
--- NOTE | 2019-03-15 15:24 | CP.PCM.PN ---
Subjective - Date & Time of Evaluation Date of Evaluation: 03/15/19 Time of Evaluation: 15:22 - Subjective Subjective: Surgery progress note. Dr. Hurley 58yo F with PMHx of Hyperthyroidism, Psoriatic Arthritis, Anxiety, PCOS who presented to [place] ED with LLQ abdominal pain. Reports pain to the LLQ today. States she is thirsty. Denies fevers or chills. Denies any CP/SOB. No urinary complaints. Objective - Vital Signs/Intake and Output Vital Signs (last 24 hours): Temp Pulse Resp BP Pulse Ox 97.4 F L 62 18 105/57 L 99 03/15/19 08:02 03/15/19 08:02 03/15/19 08:02 03/15/19 08:02 03/15/19 08:02 - Medications Medications: Current Medications Alprazolam (Xanax) 2 mg PO HS [facility] Last Admin: 03/14/19 22:59 Dose: 2 mg Dicyclomine HCl (Bentyl) 20 mg PO Q6 PRN PRN Reason: Irritable bowel symptoms Enoxaparin Sodium (Lovenox) 40 mg SC DAILY [facility]; Protocol Last Admin: 03/15/19 08:58 Dose: Not Given Hydrochlorothiazide (Microzide) 12.5 mg PO DAILY [facility] Last Admin: 03/15/19 09:08 Dose: Not Given Ciprofloxacin (Cipro 400mg/200ml Dsw) 400 mg in 200 mls @ 200 mls/hr IVPB Q12 [facility]; Protocol Last Admin: 03/15/19 08:56 Dose: 200 mls/hr Metronidazole (Flagyl 500mg/100ml Ns) 100 mls @ 100 mls/hr IVPB Q8 [facility]; Prot ocol Last Admin: 03/15/19 08:59 Dose: 100 mls/hr Sodium Chloride (Sodium Chloride 0.9%) 1,000 mls @ 80 mls/hr IV .[id number] [facility] Stop: 03/15/19 22:42 Last Admin: 03/15/19 11:22 Dose: Not Given Ibuprofen (Motrin Tab) 600 mg PO Q6 PRN PRN Reason: Pain, Mild (1-3) Levothyroxine Sodium (Levothroid) 137 mcg PO DAILY@0630 [facility] Last Admin: 03/15/19 05:42 Dose: 137 mcg Morphine Sulfate (Morphine) 1 mg IVP Q6 PRN PRN Reason: Pain, moderate (4-7) Morphine Sulfate (Morphine) 2 mg IVP Q6 PRN PRN Reason: Pain, severe (8-10) Ondansetron HCl (Zofran Inj) 4 mg IVP Q4 PRN PRN Reason: Nausea/Vomiting Pantoprazole Sodium (Protonix Inj) 40 mg IVP DAILY [facility] Last Admin: 03/15/19 14:51 Dose: 40 mg - Labs Labs: 03/15/19 06:35 03/15/19 06:35 - Constitutional Appears: Well, Non-toxic - Head Exam Head Exam: ATRAUMATIC, NORMOCEPHALIC - Eye Exam Eye Exam: Normal appearance - ENT Exam ENT Exam: Mucous Membranes Moist - Respiratory Exam Respiratory Exam: Clear to Ausculation Bilateral, NORMAL BREATHING PATTERN - Cardiovascular Exam Cardiovascular Exam: REGULAR RHYTHM - GI/Abdominal Exam GI & Abdominal Exam: Soft, Tenderness - Neurological Exam Neurological Exam: Alert, Awake - Psychiatric Exam Psychiatric exam: Normal Affect Assessment and Plan - Assessment and Plan (Free Text) Assessment: 58yo F with PMHx of hyperthyroidism, anxiety, psoriatic arthritis and PCOS here with sigmoid diverticulitis Plan: - NPO for bowel rest - IVF - IV abx - pain management - f/u GI recommendations - we will monitor patient's clinical status and make further recommendations as warranted Further recs as per Dr. Hurley
--- NOTE | 2019-03-15 15:39 | CP.PCM.CON ---
History of Present Illness - History of Present Illness History of Present Illness: 58 yo female admitted with LLQ abdominal pain for one day. Has h/o diverticulosis and sees blood at times. Has h/o hypertension and arthriris. Generally has normal bowel movements. Review of Systems - Constitutional Constitutional: absent: Chills - EENT Eyes: absent: Blurred Vision Ears: absent: Decreased Hearing Nose/Mouth/Throat: absent: Epistaxis - Cardiovascular Cardiovascular: absent: Chest Pain - Respiratory Respiratory: absent: Dyspnea - Gastrointestinal Gastrointestinal: As Per HPI - Genitourinary Genitourinary: absent: Change in Urinary Stream Past Patient History - Past Medical History & Family History Past Medical History?: Yes Past Family History: Reviewed and not pertinent - Past Social History Smoking Status: Former Smoker Alcohol: None Drugs: Denies - CARDIAC Hx Cardiac Disorders: No - PULMONARY Hx Respiratory Disorders: No - NEUROLOGICAL Hx Neurological Disorder: Yes Hx Vertigo: Yes - HEENT Hx HEENT Problems: Yes Hx Cataracts: Yes (Left eye) - RENAL Hx Chronic Kidney Disease: No - ENDOCRINE/METABOLIC Hx Hyperthyroidism: Yes - HEMATOLOGICAL/ONCOLOGICAL Hx Blood Disorders: No - INTEGUMENTARY Hx Dermatological Problems: No - MUSCULOSKELETAL/RHEUMATOLOGICAL Hx Arthritis: Yes (psoriatic) - GASTROINTESTINAL Hx Gastrointestinal Disorders: No - GENITOURINARY/GYNECOLOGICAL Hx Genitourinary Disorders: Yes Other/Comment: Polycystic ovarian disease. Fibroid on ovary - PSYCHIATRIC Hx Anxiety: Yes - SURGICAL HISTORY Hx Cholecystectomy: Yes - ANESTHESIA Hx Anesthesia: Yes Hx Anesthesia Reactions: Yes Hx Malignant Hyperthermia: No Meds Allergies/Adverse Reactions: Allergies Allergy/AdvReac Type Severity Reaction Status Date / Time latex AdvReac URTICARIA Verified 06/14/18 11:56 - Medications Medications: Current Medications Alprazolam (Xanax) 2 mg PO HS [facility] Last Admin: 03/14/19 22:59 Dose: 2 mg Dicyclomine HCl (Bentyl) 20 mg PO Q6 PRN PRN Reason: Irritable bowel symptoms Enoxaparin Sodium (Lovenox) 40 mg SC DAILY [facility]; Protocol Last Admin: 03/15/19 08:58 Dose: Not Given Hydrochlorothiazide (Microzide) 12.5 mg PO DAILY [facility] Last Admin: 03/15/19 09:08 Dose: Not Given Ciprofloxacin (Cipro 400mg/200ml Dsw) 400 mg in 200 mls @ 200 mls/hr IVPB Q12 [facility]; Protocol Last Admin: 03/15/19 08:56 Dose: 200 mls/hr Metronidazole (Flagyl 500mg/100ml Ns) 100 mls @ 100 mls/hr IVPB Q8 [facility]; Protocol Last Admin: 03/15/19 08:59 Dose: 100 mls/hr Sodium Chloride (Sodium Chloride 0.9%) 1,000 mls @ 80 mls/hr IV [id number] [facility] Stop: 03/15/19 22:42 Last Admin: 03/15/19 11:22 Dose: Not Given Ibuprofen (Motrin Tab) 600 mg PO Q6 PRN PRN Reason: Pain, Mild (1-3) Levothyroxine Sodium (Levothroid) 137 mcg PO DAILY@0630 [facility] Last Admin: 03/15/19 05:42 Dose: 137 mcg Morphine Sulfate (Morphine) 1 mg IVP Q6 PRN PRN Reason: Pain, moderate (4-7) Morphine Sulfate (Morphine) 2 mg IVP Q6 PRN PRN Reason: Pain, severe (8-10) Ondansetron HCl (Zofran Inj) 4 mg IVP Q4 PRN PRN Reason: Nausea/Vomiting Pantoprazole Sodium (Protonix Inj) 40 mg IVP DAILY [facility] Last Admin: 03/15/19 14:51 Dose: 40 mg Physical Exam - Constitutional Appears: No Acute Distress - Head Exam Head Exam: ATRAUMATIC - Eye Exam Eye Exam: Normal appearance - ENT Exam ENT Exam: Normal Exam - Neck Exam Neck exam: Positive for: Normal Inspection - Respiratory Exam Respiratory Exam: NORMAL BREATHING PATTERN - Cardiovascular Exam Cardiovascular Exam: REGULAR RHYTHM, +S1, +S2 - GI/Abdominal Exam GI & Abdominal Exam: Soft, Tenderness Additional comments: with point tenderness LLQ Results - Vital Signs Recent Vital Signs: Last Vital Signs Temp 97.4 F L 03/15/19 08:02 Pulse 62 03/15/19 08:02 Resp 18 03/15/19 08:02 BP 105/57 L 03/15/19 08:02 Pulse Ox 99 03/15/19 08:02 - Labs Result Diagrams: 03/15/19 06:35 03/15/19 06:35 Labs: Laboratory Results - last 24 hr 05/07/19 05/08/19 05/08/19 19:27 06:35 06:35 WBC 9.0 RBC 4.39 Hgb 14.0 Hct 41.2 MCV 93.9 MCH 31.8 H MCHC 33.9 RDW 13.6 Plt Count 183 pO2 34 VBG pH 7.37 VBG pCO2 46 VBG HCO3 24.6 VBG Total CO2 28.0 VBG O2 Sat (Calc) 74.4 H VBG Base Excess 0.8 VBG Potassium 3.7 Sodium 137.0 138 Chloride 103.0 105 Glucose 104 Lactate 1.0 FiO2 21.0 Potassium 3.4 L Carbon Dioxide 25 Anion Gap 11 BUN 11 Creatinine 0.6 L Est GFR ( Amer) > 60 Est GFR (Non-Af Amer) > 60 Random Glucose 104 Calcium 8.7 Total Bilirubin 0.9 AST 20 ALT 43 Alkaline Phosphatase 60 Total Protein 6.6 Albumin 3.7 Globulin 2.9 Albumin/Globulin Ratio 1.3 Triglycerides 69 Cholesterol 145 LDL Cholesterol Direct 94 HDL Cholesterol 30 Vitamin B12 729 TSH 3rd Generation 7.45 H Venous Blood Potassium 3.7 - Imaging and Cardiology CT scan - abdomen Status: Image reviewed by me, Report reviewed by me Assessment & Plan (1) Diverticulitis Assessment and Plan: With possible small abscess. Continue abx. May have clear liquids. Status: Acute
[2019-03-16] MEDS: metroNIDAZOLE 500mg/100ml NS 100 ML IVPB SCH ×3 (00:52→17:47)
[2019-03-16 06:57] LABS: BASO # 0.1 K/uL (0.0-0.2); BASO % 1.1 % (0.0-2.0); EOS # 0.2 K/uL (0.0-0.7); EOS % 3.3 % (0.0-4.0); HEMOGLOBIN 13.7 g/dL (12.0-16.0); LYMPH # 2.1 K/uL (1.0-4.3); LYMPH % 36.2 % (20.0-40.0); MEAN CELL VOLUME 93.1 fl (81.0-99.0); MEAN CORPUSCULAR HEMOGLOBIN 31.4 pg (27.0-31.0); MEAN CORPUSCULAR HGB CONC 33.7 g/dL (33.0-37.0); MEAN PLATELET VOLUME 7.9 fl (7.2-11.7); MONO # 0.5 K/uL (0.0-0.8); MONO % 9.2 % (0.0-10.0); NEUT % 50.2 % (50.0-75.0); NRBC % 0.1 % (0.0-0.0); RBC 4.35 Mil/uL (3.80-5.20); RED CELL DISTRIBUTION WIDTH 13.5 % (11.5-14.5); WHITE BLOOD COUNT 5.9 K/uL (4.8-10.8)
[2019-03-16 07:08] LABS: BLOOD UREA NITROGEN 9 mg/dl (7-17); CALCIUM 8.5 mg/dL (8.4-10.2); GFR NON-AFRICAN AMERICAN > 60
--- NOTE | 2019-03-16 08:05 | CP.PCM.PN ---
Subjective - Date & Time of Evaluation Date of Evaluation: 03/16/19 Time of Evaluation: 06:50 - Subjective Subjective: General surgery consult note for Dr. Matt Porras, PGY-2 Pt seen/examined at bedside Pt reports continued LLQ ab pain, tolerating CLD. Denies F & C, SOB, CP. Ambulating. Objective - Vital Signs/Intake and Output Vital Signs (last 24 hours): Temp Pulse Resp BP Pulse Ox 98 F 69 18 116/71 98 03/16/19 00:07 03/16/19 00:07 03/16/19 00:07 03/16/19 00:07 03/16/19 00:07 - Medications Medications: Current Medications Alprazolam (Xanax) 2 mg PO HS [facility] Last Admin: 03/15/19 22:28 Dose: 2 mg Dicyclomine HCl (Bentyl) 20 mg PO Q6 PRN PRN Reason: Irritable bowel symptoms Enoxaparin Sodium (Lovenox) 40 mg SC DAILY [facility]; Protocol Last Admin: 03/15/19 08:58 Dose: Not Given Hydrochlorothiazide (Microzide) 12.5 mg PO DAILY [facility] Last Admin: 03/15/19 09:08 Dose: Not Given Ciprofloxacin (Cipro 400mg/200ml Dsw) 400 mg in 200 mls @ 200 mls/hr IVPB Q12 [facility]; Protocol Last Admin: 03/15/19 22:00 Dose: Not Given Metronidazole (Flagyl 500mg/100ml Ns) 100 mls @ 100 mls/hr IVPB Q8 [facility]; Protocol Last Admin: 03/16/19 00:52 Dose: 100 mls/hr Ibuprofen (Motrin Tab) 600 mg PO Q6 PRN PRN Reason: Pain, Mild (1-3) Last Admin: 03/15/19 18:20 Dose: 600 mg Levothyroxine Sodium (Levothroid) 137 mcg PO DAILY@0630 [facility] Last Admin: 03/16/19 06:17 Dose: 137 mcg Morphine Sulfate (Morphine) 1 mg IVP Q6 PRN PRN Reason: Pain, moderate (4-7) Morphine Sulfate (Morphine) 2 mg IVP Q6 PRN PRN Reason: Pain, severe (8-10) Ondansetron HCl (Zofran Inj) 4 mg IVP Q4 PRN PRN Reason: Nausea/Vomiting Pantoprazole Sodium (Protonix Inj) 40 mg IVP DAILY [facility] Last Admin: 03/15/19 14:51 Dose: 40 mg - Labs Labs: 03/16/19 06:15 03/16/19 06:15 - Constitutional Appears: Non-toxic, No Acute Distress - Head Exam Head Exam: ATRAUMATIC, NORMAL INSPECTION, NORMOCEPHALIC - Eye Exam Eye Exam: EOMI, Normal appearance - ENT Exam ENT Exam: Mucous Membranes Moist, Normal Exam - Neck Exam Neck Exam: Full ROM - Respiratory Exam Respiratory Exam: NORMAL BREATHING PATTERN - Cardiovascular Exam Cardiovascular Exam: REGULAR RHYTHM - GI/Abdominal Exam GI & Abdominal Exam: Soft, Tenderness (LLQ, decreased from yesterday). absent: Distended, Firm, Guarding, Rebound - Extremities Exam Extremities Exam: Normal Inspection - Neurological Exam Neurological Exam: Alert, Awake, CN II-XII Intact, Oriented x3 - Psychiatric Exam Psychiatric exam: Normal Affect, Normal Mood - Skin Skin Exam: Dry, Intact, Normal Color, Warm Assessment and Plan - Assessment and Plan (Free Text) Assessment: 58F w/sigmoid diverticulitis with phlegmon vs abscess Plan: Continue ABx Diet as per GI Ambulate Monitor for resolution of abdominal pain Pain control Further recs pending attending evaluation Will DW Dr. Xavi Porras, PGY-2
--- NOTE | 2019-03-16 08:12 | CP.PCM.PN ---
Subjective - Date & Time of Evaluation Date of Evaluation: 03/16/19 Time of Evaluation: 06:30 - Subjective Subjective: Patient seen and examined this morning with Dr. García. NAD, no acute event reported overnight, patient is tolerating PO intake and still c/o LLQ pain. Denies any f/c/n/v/d. VS and Labs reviewed: continue plan as ordered Seen by surgery and GI: recommendations appreciated, c/w Abx PT today Objective - Vital Signs/Intake and Output Vital Signs (last 24 hours): Temp Pulse Resp BP Pulse Ox 98 F 69 18 116/71 98 03/16/19 00:07 03/16/19 00:07 03/16/19 00:07 03/16/19 00:07 03/16/19 00:07 - Medications Medications: Current Medications Alprazolam (Xanax) 2 mg PO HS [facility] Last Admin: 03/15/19 22:28 Dose: 2 mg Dicyclomine HCl (Bentyl) 20 mg PO Q6 PRN PRN Reason: Irritable bowel symptoms Enoxaparin Sodium (Lovenox) 40 mg SC DAILY [facility]; Protocol Last Admin: 03/15/19 08:58 Dose: Not Given Hydrochlorothiazide (Microzide) 12.5 mg PO DAILY [facility] Last Admin: 03/15/19 09:08 Dose: Not Given Ciprofloxacin (Cipro 400mg/200ml Dsw) 400 mg in 200 mls @ 200 mls/hr IVPB Q12 [facility]; Protocol Last Admin: 03/15/19 22:00 Dose: Not Given Metronidazole (Flagyl 500mg/100ml Ns) 100 mls @ 100 mls/hr IVPB Q8 [facility]; Protocol Last Admin: 03/16/19 00:52 Dose: 100 mls/hr Ibuprofen (Motrin Tab) 600 mg PO Q6 PRN PRN Reason: Pain, Mild (1-3) Last Admin: 03/15/19 18:20 Dose: 600 mg Levothyroxine Sodium (Levothroid) 137 mcg PO DAILY@0630 [facility] Last Admin: 03/16/19 06:17 Dose: 137 mcg Morphine Sulfate (Morphine) 1 mg IVP Q6 PRN PRN Reason: Pain, moderate (4-7) Morphine Sulfate (Morphine) 2 mg IVP Q6 PRN PRN Reason: Pain, severe (8-10) Ondansetron HCl (Zofran Inj) 4 mg IVP Q4 PRN PRN Reason: Nausea/Vomiting Pantoprazole Sodium (Protonix Inj) 40 mg IVP DAILY [facility] Last Admin: 03/15/19 14:51 Dose: 40 mg - Labs Labs: 03/16/19 06:15 03/16/19 06:15 - Constitutional Appears: No Acute Distress - Head Exam Head Exam: NORMAL INSPECTION - Eye Exam Eye Exam: EOMI, Normal appearance Pupil Exam: NORMAL ACCOMODATION - ENT Exam ENT Exam: Mucous Membranes Moist - Respiratory Exam Respiratory Exam: Clear to Ausculation Bilateral, NORMAL BREATHING PATTERN - Cardiovascular Exam Cardiovascular Exam: REGULAR RHYTHM, +S1, +S2 - GI/Abdominal Exam GI & Abdominal Exam: Soft, Tenderness (LLQ). absent: Rebound - Extremities Exam Extremities Exam: Normal Inspection - Back Exam Back Exam: NORMAL INSPECTION - Neurological Exam Neurological Exam: Alert, Awake, CN II-XII Intact, Oriented x3 - Psychiatric Exam Psychiatric exam: Normal Affect - Skin Skin Exam: Normal Color Assessment and Plan - Assessment and Plan (Free Text) Assessment: A/P: 58 y/o F with PMH of HTN, arthritis and Hypothyroid admitted to [facility] for evaluation and treatment of sigmoid diverticulitis with possible abscess. LLQ Abdominal pain, due to Sigmoid Diverticulitis with possible abscess - CT Abdo/Pelvis: Sigmoid Diverticulitis with possible abscess - Afebrile, No leukocytosis - Surgery and GI recs appreciated - START Cipro and Flagyl Day 2 - C/w pain management, and Zofran PRN - F/u Bcx: NGPD - Monitor labs and VS - Tolerating PO intake, advance as tolerated HTN, Chronic, Controlled - C/w home meds as ordered Hypothyroid, Chronic - TSH 7.45 - Increased Levothy to 150 mcg DVT PPX - SCD and Lovenox - PT Case discussed with Dr. García
[2019-03-16] MEDS: Ciprofloxacin 400mg/200ml D5W 400 MG/200 ML BAG IVPB SCH ×2 (09:07→21:37)
[2019-03-16] MEDS: Enoxaparin 40 mg Syringe SC SCH (09:10)
--- NOTE | 2019-03-16 20:41 | CP.PCM.PN ---
Subjective - Date & Time of Evaluation Date of Evaluation: 03/16/19 Time of Evaluation: 09:00 - Subjective Subjective: Patient states abdominal pain is present but improved. Objective - Vital Signs/Intake and Output Vital Signs (last 24 hours): Temp Pulse Resp BP Pulse Ox 98.1 F 71 20 130/60 100 03/16/19 16:08 03/16/19 16:08 03/16/19 16:08 03/16/19 16:08 03/16/19 16:08 - Medications Medications: Current Medications Alprazolam (Xanax) 2 mg PO HS [facility] Last Admin: 03/15/19 22:28 Dose: 2 mg Dicyclomine HCl (Bentyl) 20 mg PO Q6 PRN PRN Reason: Irritable bowel symptoms Enoxaparin Sodium (Lovenox) 40 mg SC DAILY [facility]; Protocol Last Admin: 03/16/19 09:10 Dose: Not Given Hydrochlorothiazide (Microzide) 12.5 mg PO DAILY [facility] Last Admin: 03/16/19 09:10 Dose: Not Given Ciprofloxacin (Cipro 400mg/200ml Dsw) 400 mg in 200 mls @ 200 mls/hr IVPB Q12 [facility]; Protocol Last Admin: 03/16/19 09:07 Dose: 200 mls/hr Metronidazole (Flagyl 500mg/100ml Ns) 100 mls @ 100 mls/hr IVPB Q8 [facility]; Protocol Last Admin: 03/16/19 17:47 Dose: 100 mls/hr Ibuprofen (Motrin Tab) 600 mg PO Q6 PRN PRN Reason: Pain, Mild (1-3) Last Admin: 03/16/19 17:57 Dose: 600 mg Levothyroxine Sodium (Synthroid) 150 mcg PO DAILY@0630 [facility] Morphine Sulfate (Morphine) 1 mg IVP Q6 PRN PRN Reason: Pain, moderate (4-7) Morphine Sulfate (Morphine) 2 mg IVP Q6 PRN PRN Reason: Pain, severe (8-10) Ondansetron HCl (Zofran Inj) 4 mg IVP Q4 PRN PRN Reason: Nausea/Vomiting Pantoprazole Sodium (Protonix Inj) 40 mg IVP DAILY [facility] Last Admin: 03/16/19 09:11 Dose: 40 mg - Labs Labs: 03/16/19 06:15 03/16/19 06:15 - Head Exam Head Exam: ATRAUMATIC - Eye Exam Eye Exam: Normal appearance - ENT Exam ENT Exam: Mucous Membranes Moist - Neck Exam Neck Exam: Full ROM - Respiratory Exam Respiratory Exam: Clear to Ausculation Bilateral - Cardiovascular Exam Cardiovascular Exam: REGULAR RHYTHM - GI/Abdominal Exam GI & Abdominal Exam: Soft, Tenderness Additional comments: LLQ tenderness present though improved. Assessment and Plan (1) Diverticulitis Assessment & Plan: Clinically better. May have full liquid diet. Continue antibiotics. Status: Acute
[2019-03-17] MEDS: metroNIDAZOLE 500mg/100ml NS 100 ML IVPB SCH ×2 (00:22→09:43)
[2019-03-17 00:23] VITALS: RESP 18
[2019-03-17] MEDS ORDERED: Levothyroxine 150 MCG TAB PO SCH (06:30)
[2019-03-17 08:19] VITALS: BP 112/70; PULSE 55; TEMP 97.4; O2SAT 98
--- NOTE | 2019-03-17 08:59 | CP.PCM.PN ---
Subjective - Date & Time of Evaluation Date of Evaluation: 03/17/19 Time of Evaluation: 07:45 - Subjective Subjective: General surgery progress note for Dr. Matt Porras, PGY-2 Pt seen/examined at bedside Pt reports LLQ ab pain much improved, actually is hungry today. Denies N & V, F & C, SOB, CP. Ambulating. Objective - Vital Signs/Intake and Output Vital Signs (last 24 hours): Temp Pulse Resp BP Pulse Ox 97.4 F L 55 L 18 112/70 98 03/17/19 08:18 03/17/19 08:18 03/17/19 08:18 03/17/19 08:18 03/17/19 08:18 - Medications Medications: Current Medications Alprazolam (Xanax) 2 mg PO HS [facility] Last Admin: 03/17/19 00:22 Dose: 2 mg Dicyclomine HCl (Bentyl) 20 mg PO Q6 PRN PRN Reason: Irritable bowel symptoms Enoxaparin Sodium (Lovenox) 40 mg SC DAILY [facility]; Protocol Last Admin: 03/16/19 09:10 Dose: Not Given Hydrochlorothiazide (Microzide) 12.5 mg PO DAILY [facility] Last Admin: 03/16/19 09:10 Dose: Not Given Ciprofloxacin (Cipro 400mg/200ml Dsw) 400 mg in 200 mls @ 200 mls/hr IVPB Q12 [facility]; Protocol Last Admin: 03/16/19 21:37 Dose: 200 mls/hr Metronidazole (Flagyl 500mg/100ml Ns) 100 mls @ 100 mls/hr IVPB Q8 [facility]; Protocol Last Admin: 03/17/19 00:22 Dose: 100 mls/hr Ibuprofen (Motrin Tab) 600 mg PO Q6 PRN PRN Reason: Pain, Mild (1-3) Last Admin: 03/16/19 17:57 Dose: 600 mg Levothyroxine Sodium (Synthroid) 150 mcg PO DAILY@0630 [facility] Morphine Sulfate (Morphine) 1 mg IVP Q6 PRN PRN Reason: Pain, moderate (4-7) Morphine Sulfate (Morphine) 2 mg IVP Q6 PRN PRN Reason: Pain, severe (8-10) Ondansetron HCl (Zofran Inj) 4 mg IVP Q4 PRN PRN Reason: Nausea/Vomiting Pantoprazole Sodium (Protonix Inj) 40 mg IVP DAILY [facility] Last Admin: 03/16/19 09:11 Dose: 40 mg - Labs Labs: 03/16/19 06:15 03/16/19 06:15 - Constitutional Appears: Non-toxic, No Acute Distress - Head Exam Head Exam: ATRAUMATIC, NORMAL INSPECTION, NORMOCEPHALIC - Eye Exam Eye Exam: EOMI, Normal appearance - ENT Exam ENT Exam: Mucous Membranes Moist, Normal Exam - Respiratory Exam Respiratory Exam: Clear to Ausculation Bilateral - Cardiovascular Exam Cardiovascular Exam: REGULAR RHYTHM - GI/Abdominal Exam GI & Abdominal Exam: Soft. absent: Distended, Firm, Guarding, Tenderness, Mass - Extremities Exam Extremities Exam: Normal Inspection - Neurological Exam Neurological Exam: Alert, Awake, CN II-XII Intact, Oriented x3 - Psychiatric Exam Psychiatric exam: Normal Affect, Normal Mood - Skin Skin Exam: Dry, Intact, Normal Color, Warm Assessment and Plan - Assessment and Plan (Free Text) Assessment: 58F w/Sigmoid diverticulitis- resolving Plan: Cont Abx On CLD- tolerating Pain control PRN Ambulate OOBTC Further recs as per primary team DW Dr. Xavi Porras, PGY-2
[2019-03-17] MEDS: Enoxaparin 40 mg Syringe SC SCH ×2 (09:40→09:47)
[2019-03-17] MEDS: Ciprofloxacin 400mg/200ml D5W 400 MG/200 ML BAG IVPB SCH (09:42)
--- NOTE | 2019-03-17 10:02 | CP.PCM.DIS ---
Provider - Provider Date of Admission: 03/14/19 18:37 Attending physician: Ash García MD Primary care physician: Dr. Coughlin Consults: 03/15/19 05:03 General Surgery Consult Routine Comment: Consulting Provider: Malia Hurley Consulting Physician: Malia Hurley Reason for Consult: diverticulitis 03/15/19 08:55 Gastroenterology Consult Routine Comment: Consulting Provider: Shyam Sullivan Consulting Physician: Shyam Sullivan Reason for Consult: Diverticulitis Time Spent in preparation of Discharge (in minutes): 40 Diagnosis - Discharge Diagnosis (1) Sigmoid diverticulitis Status: Acute (2) HTN (hypertension) Status: Acute (3) Hypothyroid Status: Acute Hospital Course - Lab Results Lab Results: Micro Results 03/14/19 19:15 Blood-Venous Blood Culture - Preliminary NO GROWTH AFTER 48 HOURS 03/14/19 19:00 Blood-Venous Blood Culture - Preliminary NO GROWTH AFTER 48 HOURS Most Recent Lab Values WBC 5.9 K/uL (4.8-10.8) 03/16/19 06:15 RBC 4.35 Mil/uL (3.80-5.20) 03/16/19 06:15 Hgb 13.7 g/dL (12.0-16.0) 03/16/19 06:15 Hct 40.5 % (34.0-47.0) 03/16/19 06:15 MCV 93.1 fl (81.0-99.0) 03/16/19 06:15 MCH 31.4 pg (27.0-31.0) H 03/16/19 06:15 MCHC 33.7 g/dL (33.0-37.0) 03/16/19 06:15 RDW 13.5 % (11.5-14.5) 03/16/19 06:15 Plt Count 189 K/uL (130-400) 03/16/19 06:15 MPV 7.9 fl (7.2-11.7) 03/16/19 06:15 Neut % (Auto) 50.2 % (50.0-75.0) 03/16/19 06:15 Lymph % (Auto) 36.2 % (20.0-40.0) 03/16/19 06:15 [place] % (Auto) 9.2 % (0.0-10.0) 03/16/19 06:15 Eos % (Auto) 3.3 % (0.0-4.0) 03/16/19 06:15 Baso % (Auto) 1.1 % (0.0-2.0) 03/16/19 06:15 Neut # (Auto) 3.0 K/uL (1.8-7.0) 03/16/19 06:15 Lymph # (Auto) 2.1 K/uL (1.0-4.3) 03/16/19 06:15 [place] # (Auto) 0.5 K/uL (0.0-0.8) 03/16/19 06:15 Eos # (Auto) 0.2 K/uL (0.0-0.7) 03/16/19 06:15 Baso # (Auto) 0.1 K/uL (0.0-0.2) 03/16/19 06:15 pO2 34 mm/Hg (30-55) 03/14/19 19:27 VBG pH 7.37 (7.32-7.43) 03/14/19 19:27 VBG pCO2 46 mmHg (40-60) 03/14/19 19:27 VBG HCO3 24.6 mmol/L 03/14/19 19:27 VBG Total CO2 28.0 mmol/L (22-28) 03/14/19 19:27 VBG O2 Sat (Calc) 74.4 % (40-65) H 03/14/19 19:27 VBG Base Excess 0.8 mmol/L (0.0-2.0) 03/14/19 19:27 VBG Potassium 3.7 mmol/L (3.6-5.2) 03/14/19 19:27 Sodium 137.0 mmol/L (132-148) 03/14/19 19:27 Chloride 103.0 mmol/L (98-107) 03/14/19 19: Glucose 104 mg/dL (65-105) 03/14/19 19:27 Lactate 1.0 mmol/L (0.7-2.1) 03/14/19 19:27 FiO2 21.0 % 03/14/19 19:27 Sodium 139 mmol/l (132-148) 03/16/19 06:15 Potassium 3.7 MMOL/L (3.6-5.0) 03/16/19 06:15 Chloride 104 mmol/L (98-107) 03/16/19 06:15 Carbon Dioxide 27 mmol/L (22-30) 03/16/19 06:15 Anion Gap 12 (10-20) 03/16/19 06:15 BUN 9 mg/dl (7-17) 03/16/19 06:15 Creatinine 0.6 mg/dl (0.7-1.2) L 03/16/19 06:15 Est GFR ( Amer) > 60 03/16/19 06:15 Est GFR (Non-Af Amer) > 60 03/16/19 06:15 Random Glucose 102 mg/dL (65-105) 03/16/19 06:15 Calcium 8.5 mg/dL (8.4-10.2) 03/16/19 06:15 Total Bilirubin 0.9 mg/dl (0.2-1.3) 03/15/19 06:35 AST 20 U/L (14-36) 03/15/19 06:35 ALT 43 U/L (9-52) 03/15/19 06:35 Alkaline Phosphatase 60 U/L (38-126) 03/15/19 06:35 Total Protein 6.6 G/DL (6.3-8.2) 03/15/19 06:35 Albumin 3.7 g/dL (3.5-5.0) 03/15/19 06:35 Globulin 2.9 gm/dL (2.2-3.9) 03/15/19 06:35 Albumin/Globulin Ratio 1.3 (1.0-2.1) 03/15/19 06:35 Triglycerides 69 mg/DL (0-149) 03/15/19 06:35 Cholesterol 145 mg/dL (0-199) 03/15/19 06:35 LDL Cholesterol Direct 94 mg/dL (0-129) 03/15/19 06:35 HDL Cholesterol 30 MG/DL (30-70) 03/15/19 06:35 Lipase 106 U/L (23-300) 03/14/19 13:35 Vitamin B12 729 pg/mL (239-931) 03/15/19 06:35 TSH 3rd Generation 7.45 mIU/ML (0.46-4.68) H 03/15/19 06:35 Venous Blood Potassium 3.7 mmol/L (3.6-5.2) 03/14/19 19:27 Urine Color Yellow (YELLOW) 03/14/19 14:10 Urine Clarity Clear (Clear) 03/14/19 14:10 Urine pH 6.0 (5.0-8.0) 03/14/19 14:10 Ur Specific [place] 1.011 (1.003-1.030) 03/14/19 14:10 Urine Protein Negative mg/dL (NEGATIVE) 03/14/19 14:10 Urine Glucose (UA) 150 mg/dL (NEGATIVE) 03/14/19 14:10 Urine Ketones Negative mg/dL (NEGATIVE) 03/14/19 14:10 Urine Blood Negative (NEGATIVE) 03/14/19 14:10 Urine Nitrate Negative (NEGATIVE) 03/14/19 14:10 Urine Bilirubin Negative (NEGATIVE) 03/14/19 14:10 Urine Urobilinogen 0.2-1.0 mg/dL (0.2-1.0) 03/14/19 14:10 Ur Leukocyte Esterase Neg [place]/uL (Negative) 03/14/19 14:10 Urine RBC (Auto) 1 /hpf (0-3) 03/14/19 14:10 Urine Microscopic WBC 2 /hpf (0-5) 03/14/19 14:10 Ur Squamous Epith Cells < 1 /hpf (0-5) 03/14/19 14:10 - Hospital Course Hospital Course: 58 y/o F with PMH of HTN, arthritis and Hypothyroid admitted to [facility] for evaluation and treatment of sigmoid diverticulitis with possible abscess. After admission, VS, labs and studies reviewed, CT Abdo/Pelvis: Sigmoid Diverticulitis with possible abscess, Afebrile, No leukocytosis. Surgery and GI consulted, started on cipro and flagyl. Patient improved significantly, tolerating regular diet, cleared by GI and Surgery for d/c. Patient understands and agrees with d/c plan. RX for cipro and Flagyl for 7 days Rx for levothyroxine 150mcg changes from 137mcg Discharge Exam - Head Exam Head Exam: ATRAUMATIC, NORMAL INSPECTION, NORMOCEPHALIC - Eye Exam Eye Exam: EOMI, Normal appearance, PERRL Pupil Exam: NORMAL ACCOMODATION - ENT Exam ENT Exam: Mucous Membranes Moist - Respiratory Exam Respiratory Exam: Clear to PA & Lateral, NORMAL BREATHING PATTERN, UNREMARKABLE - Cardiovascular Exam Cardiovascular Exam: REGULAR RHYTHM, +S1, +S2 - GI/Abdominal Exam GI & Abdominal Exam: Normal Bowel Sounds, Soft. absent: Tenderness - Rectal Exam Rectal Exam: Deferred - Extremities Exam Extremities exam: normal inspection - Back Exam Back exam: NORMAL INSPECTION. absent: CVA tenderness (L), CVA tenderness (R) - Neurological Exam Neurological exam: Alert, CN II-XII Intact, Normal Gait, Oriented x3, Reflexes Normal - Psychiatric Exam Psychiatric exam: Normal Affect - Skin Skin Exam: Dry, Intact, Normal Color, Warm Discharge Plan - Discharge Medications Prescriptions: Ciprofloxacin [Cipro] 500 mg PO BID #14 tab Famotidine [Pepcid] 20 mg PO DAILY #30 tab Levothyroxine [Synthroid] 150 mcg PO DAILY #30 tab Metronidazole [Flagyl] 500 mg PO BID #14 tablet - Follow Up Plan Condition: FAIR Disposition: HOME/ ROUTINE Patient education suggested?: Yes Instructions: Low Cholesterol, Saturated Fat, and Trans Fat Diet , Low Fiber Diet, Diverticulitis (DC) Additional Instructions: To continue low residue diet upon discharge Please follow up with Dr. Hurley in 1-2 weeks if needed F/u with GI in 1 -2 weeks F/u with PMD in 1 week Levothyroxine changed to 150mcg Continue with Antibiotics as given and discussed Referrals: Malia Hurley MD [Staff Provider] - Shyam Sullivan MD [Staff Provider] - Johan Coughlin MD [Family Provider] -
--- NOTE | 2019-03-17 11:49 | CP.PCM.PN ---
Subjective - Date & Time of Evaluation Date of Evaluation: 03/17/19 Time of Evaluation: 09:00 - Subjective Subjective: Patient states pain abdominal pain continues to lessen. Tolerating liquids. Objective - Vital Signs/Intake and Output Vital Signs (last 24 hours): Temp Pulse Resp BP Pulse Ox 97.4 F L 55 L 18 112/70 98 03/17/19 08:18 03/17/19 08:18 03/17/19 08:18 03/17/19 08:18 03/17/19 08:18 - Medications Medications: Current Medications Alprazolam (Xanax) 2 mg PO HS [facility] Last Admin: 03/17/19 00:22 Dose: 2 mg Dicyclomine HCl (Bentyl) 20 mg PO Q6 PRN PRN Reason: Irritable bowel symptoms Last Admin: 03/17/19 09:40 Dose: 20 mg Enoxaparin Sodium (Lovenox) 40 mg SC DAILY [facility]; Protocol Last Admin: 03/17/19 09:47 Dose: Not Given Hydrochlorothiazide (Microzide) 12.5 mg PO DAILY [facility] Last Admin: 03/17/19 09:40 Dose: 12.5 mg Ciprofloxacin (Cipro 400mg/200ml Dsw) 400 mg in 200 mls @ 200 mls/hr IVPB Q12 [facility]; Protocol Last Admin: 03/17/19 09:42 Dose: 200 mls/hr Metronidazole (Flagyl 500mg/100ml Ns) 100 mls @ 100 mls/hr IVPB Q8 [facility]ACK[facility]; Protocol Last Admin: 03/17/19 09:43 Dose: 100 mls/hr Ibuprofen (Motrin Tab) 600 mg PO Q6 PRN PRN Reason: Pain, Mild (1-3) Last Admin: 03/16/19 17:57 Dose: 600 mg Levothyroxine Sodium (Synthroid) 150 mcg PO DAILY@0630 [facility] Last Admin: 03/17/19 09:52 Dose: Not Given Morphine Sulfate (Morphine) 1 mg IVP Q6 PRN PRN Reason: Pain, moderate (4-7) Morphine Sulfate (Morphine) 2 mg IVP Q6 PRN PRN Reason: Pain, severe (8-10) Ondansetron HCl (Zofran Inj) 4 mg IVP Q4 PRN PRN Reason: Nausea/Vomiting Pantoprazole Sodium (Protonix Inj) 40 mg IVP DAILY [facility] Last Admin: 03/17/19 09:39 Dose: 40 mg - Labs Labs: 03/16/19 06:15 03/16/19 06:15 - Head Exam Head Exam: ATRAUMATIC - Eye Exam Eye Exam: Normal appearance - ENT Exam ENT Exam: Normal Exam - Neck Exam Neck Exam: Full ROM - Respiratory Exam Respiratory Exam: Clear to Ausculation Bilateral - Cardiovascular Exam Cardiovascular Exam: REGULAR RHYTHM - GI/Abdominal Exam GI & Abdominal Exam: Soft, Tenderness, Normal Bowel Sounds Additional comments: Mild LLQ tenderness Assessment and Plan (1) Diverticulitis Assessment & Plan: Continues to improve. May advance to solids. May d/c home on antibiotics. Status: Acute
== END 2019-03-17 14:44 | disposition home or self-care (01) | DRG 182 ==
LOC: H.ER 11:37 → H.ERHOLD 18:37 → H.MEDSURG1 21:55
PROVIDERS: ADMIT Internal Medicine; ATTEND Internal Medicine
DX: K57.20 Diverticulitis of large intestine with perforation and abscess without bleeding (principal); L40.50 Arthropathic psoriasis, unspecified; E28.2 Polycystic ovarian syndrome; E03.9 Hypothyroidism, unspecified; I10 Essential (primary) hypertension; F41.9 Anxiety disorder, unspecified; Z87.891 Personal history of nicotine dependence; Z91.040 Latex allergy status